=== PATIENT | female | born 1990 | race Caucasian/White ===

== ENCOUNTER 2017-09-21 12:44 | Outpatient (CLI) | payer MEDICAID ==
[2017-09-21 16:42] LABS: ADD UMIC NO; UR ASCORBIC ACID 20 mg/dL (NEGATIVE); UR BILIRUBIN (Dip) NEGATIVE (NEGATIVE); UR BLOOD (Dip) NEGATIVE (NEGATIVE); UR CLARITY CLEAR (CLEAR); UR COLOR YELLOW (YELLOW); UR GLUCOSE (Dip) NEGATIVE (NEGATIVE); UR KETONES (Dip) NEGATIVE (NEGATIVE); UR LEUKOCYTE ESTERASE (Dip) NEGATIVE Leu/ul (NEGATIVE); UR NITRITE (Dip) NEGATIVE (NEGATIVE); UR SPECIFIC GRAVITY (Dip) 1.016 (1.003-1.030); UR TOTAL PROTEIN (Dip) NEGATIVE (NEGATIVE); UR UROBILINOGEN (Dip) NEGATIVE (NEGATIVE)
== END 2017-09-21 17:45 | disposition home or self-care (01) ==
LOC: OBT 12:44 → L-D 12:45 → OBT 17:45
DX: O26.893 Other specified pregnancy related conditions, third trimester (principal); Z3A.37 37 weeks gestation of pregnancy; R10.2 Pelvic and perineal pain
CPT/HCPCS: 76818; 81003

== ENCOUNTER 2017-10-09 17:19 | Inpatient (IN) | payer MEDICAID ==
[2017-10-09] MEDS ORDERED: METHYLERGONOVINE 0.2 MG INJ IM (18:30)
[2017-10-09] MEDS ORDERED: MISOPROSTOL 200 MCG TAB PR (18:30)
[2017-10-09] MEDS ORDERED: CARBOPROST 250 MCG INJ IM (18:30)
[2017-10-09] MEDS ORDERED: OXYTOCIN 30 UNITS/LR 500 ML IV (18:30)
[2017-10-09] MEDS ORDERED: IBUPROFEN 600 MG TAB PO (18:30)
[2017-10-09] MEDS ORDERED: LIDOCAINE 1% (MPF) 30 ML INJ INJ (18:30)
[2017-10-09] MEDS: LACTATED RINGER'S 1,000 ML IV ×2 (18:46→20:38)
[2017-10-09] MEDS: AMPICILLIN 2 GM/NS (PMX) 100 ML IV (18:59)
[2017-10-09 19:24] LABS: ADD MAN DIFF? NO
[2017-10-09 19:30] LABS: BASOPHILS % 0.3 % (0.0-2.0); EOSINOPHILS # 0.1 10^3/ul (0.0-0.5); EOSINOPHILS % 1.4 % (0.0-7.0); HEMATOCRIT 38.1 % (37.0-47.0); HEMOGLOBIN 13.4 g/dl (12.0-16.0); LYMPHOCYTES # 1.8 10^3/ul (0.8-2.9); LYMPHOCYTES % 20.9 % (15.0-51.0); MEAN CORPUSCULAR HEMOGLOBIN 31.9 pg (29.0-33.0); MEAN CORPUSCULAR HGB CONC 35.2 g/dl (32.0-37.0); MEAN CORPUSCULAR VOLUME 90.7 fl (82.0-101.0); MEAN PLATELET VOLUME 10.3 fl (7.4-10.4); MONOCYTE # 0.8 10^3/ul (0.3-0.9); MONOCYTES % 8.7 % (0.0-11.0); NEUTROPHIL # 5.9 10^3/ul (1.6-7.5); NEUTROPHILS % 68.1 % (39.0-77.0); PLATELET COUNT 180 10^3/UL (140-415); RED CELL DISTRIBUTION WIDTH 12.8 % (11.5-14.5)
[2017-10-09 19:30] LABS: WHITE BLOOD COUNT 8.6 10^3/ul (4.8-10.8)
[2017-10-09] MEDS: BUTORPHANOL 2 MG INJ IV (19:44)
[2017-10-09 19:53] LABS: INR 0.96; PROTIME 12.9 Sec (11.9-14.9)
[2017-10-09] MEDS ORDERED: FENTAnyl 2MCG/ML-ROPIV 0.2% 100 ML (20:11)
[2017-10-09] MEDS ORDERED: FENTAnyl 2MCG/ML-ROPIV 0.2% 100 ML BAG EPI (22:00)
[2017-10-09] MEDS ORDERED: TRIMETHOBENZAMIDE 100 MG/ML VIAL IM (22:00)
[2017-10-09] MEDS ORDERED: ONDANSETRON 4 MG INJ IV (22:00)
[2017-10-09] MEDS ORDERED: DIPHENHYDRAMINE 50 MG INJ IV (22:00)
[2017-10-09] MEDS ORDERED: NALOXONE (0.4 MG/ML) INJ IV (22:00)
[2017-10-09] MEDS: OXYTOCIN 30 UNITS/LR 500 ML IV ×2 (22:08→22:09)
[2017-10-09] MEDS ORDERED: AMPICILLIN 1 GM/NS (PMX) 50 ML IV (22:30)
[2017-10-10] MEDS ORDERED: DEXTROSE 5%-LR 1,000 ML IV (00:16)
[2017-10-10] MEDS ORDERED: LACTATED RINGER'S 1,000 ML IV* (00:16)
[2017-10-10] MEDS ORDERED: ZOLPIDEM 5 MG TAB PO (00:30)
[2017-10-10] MEDS ORDERED: ONDANSETRON 4 MG INJ IV (00:30)
[2017-10-10] MEDS ORDERED: MISOPROSTOL 200 MCG TAB PR (00:30)
[2017-10-10] MEDS ORDERED: DIPHENHYDRAMINE 50 MG INJ IV (00:30)
[2017-10-10] MEDS ORDERED: OXYCODONE/ASPIRIN (4.88/325) TAB PO (00:30)
[2017-10-10] MEDS ORDERED: OXYTOCIN 30 UNITS/LR 500 ML IV (00:30)
[2017-10-10] MEDS ORDERED: METHYLERGONOVINE 0.2 MG INJ IM (00:30)
[2017-10-10] MEDS ORDERED: ACETAMINOPHEN 325 MG TAB PO (00:30)
[2017-10-10] MEDS ORDERED: SENNA/DOCUSATE NA (8.6MG/50MG) TAB PO (00:30)
[2017-10-10] MEDS ORDERED: DIBUCAINE 1% 30 GM OINT PR (00:30)
[2017-10-10] MEDS ORDERED: CARBOPROST 250 MCG INJ IM (00:30)
[2017-10-10] MEDS: WITCH HAZEL/GLYCERIN PAD PR (05:35)
[2017-10-10] MEDS: IBUPROFEN 600 MG TAB PO ×4 (05:35→23:33)
[2017-10-10] MEDS: BENZOCAINE 20% 56 ML SPRAY TOP (05:36)
[2017-10-10] MEDS: LANOLIN 7 GM TUBE TOP (05:36)
[2017-10-10 11:38] LABS: ADD MAN DIFF? NO
[2017-10-10 11:47] LABS: BASOPHILS % 0.3 % (0.0-2.0); EOSINOPHILS # 0.1 10^3/ul (0.0-0.5); EOSINOPHILS % 0.8 % (0.0-7.0); HEMATOCRIT 37.6 % (37.0-47.0); LYMPHOCYTES # 1.8 10^3/ul (0.8-2.9); MEAN CORPUSCULAR HEMOGLOBIN 31.5 pg (29.0-33.0); MEAN CORPUSCULAR HGB CONC 34.6 g/dl (32.0-37.0); MEAN PLATELET VOLUME 10.3 fl (7.4-10.4); MONOCYTE # 0.7 10^3/ul (0.3-0.9); MONOCYTES % 6.3 % (0.0-11.0); NEUTROPHIL # 8.4 10^3/ul (1.6-7.5); NEUTROPHILS % 76.1 % (39.0-77.0); PLATELET COUNT 169 10^3/UL (140-415); RED BLOOD COUNT 4.13 10^6/ul (4.20-5.40); RED CELL DISTRIBUTION WIDTH 12.8 % (11.5-14.5)
[2017-10-10 15:29] LABS: RAPID PLASMA REAGIN NONREACTIVE (NR)
[2017-10-10] MEDS: LACTATED RINGER'S 1,000 ML IV (23:59)
[2017-10-11] MEDS: IBUPROFEN 600 MG TAB PO ×2 (06:00→11:27)
[2017-10-11 09:11] LABS: ADD MAN DIFF? NO
[2017-10-11 09:18] LABS: WHITE BLOOD COUNT 8.8 10^3/ul (4.8-10.8)
[2017-10-11 09:18] LABS: BASOPHIL # 0.1 10^3/ul (0.0-0.1); BASOPHILS % 0.6 % (0.0-2.0); EOSINOPHILS # 0.2 10^3/ul (0.0-0.5); EOSINOPHILS % 2.7 % (0.0-7.0); HEMATOCRIT 36.4 % (37.0-47.0); HEMOGLOBIN 12.6 g/dl (12.0-16.0); LYMPHOCYTES # 2.3 10^3/ul (0.8-2.9); LYMPHOCYTES % 25.9 % (15.0-51.0); MEAN CORPUSCULAR HEMOGLOBIN 31.8 pg (29.0-33.0); MEAN CORPUSCULAR HGB CONC 34.6 g/dl (32.0-37.0); MEAN CORPUSCULAR VOLUME 91.9 fl (82.0-101.0); MEAN PLATELET VOLUME 10.6 fl (7.4-10.4); MONOCYTE # 0.6 10^3/ul (0.3-0.9); MONOCYTES % 6.3 % (0.0-11.0); NEUTROPHIL # 5.6 10^3/ul (1.6-7.5); NEUTROPHILS % 63.7 % (39.0-77.0); PLATELET COUNT 176 10^3/UL (140-415); RED BLOOD COUNT 3.96 10^6/ul (4.20-5.40); RED CELL DISTRIBUTION WIDTH 12.8 % (11.5-14.5)
[2017-10-11] MEDS: DIPHTH/TET/ACEL PERTUSS (ADULT) 0.5 ML VIAL IM* (11:27)
[2017-10-11] MEDS: MEASLES,MUMPS,RUBELLA VACCINE INJ SC* (16:40)
== END 2017-10-11 17:44 | disposition home or self-care (01) | DRG 775 ==
LOC: OBT 17:19 → PP1 10-10 00:23 → L-D 17:20 → OBT 17:55 → L-D 18:12
PROVIDERS: Obstetrics & Gynecology
PROC: 10E0XZZ Delivery of Products of Conception, External Approach (ICD-10-PCS; principal; 2017-10-10)
DX: O80 Encounter for full-term uncomplicated delivery (principal); Z3A.39 39 weeks gestation of pregnancy; Z37.0 Single live birth
CPT/HCPCS: 62319; 85025; 85610; 85730; 86592; 86900; 86901; 90715

== ENCOUNTER 2018-01-25 12:45 | Emergency (ER) | payer MEDICAID ==
[2018-01-25] MEDS: IBUPROFEN 200 MG TAB PO (15:26)
[2018-01-25] MEDS: ACETAMINOPHEN 500 MG TAB PO (15:26)
== END 2018-01-25 16:16 | disposition home or self-care (01) ==
LOC: FTE 12:45
DX: M62.838 Other muscle spasm (principal)
CPT/HCPCS: 72040; 99283-25